=== PATIENT | female | born 1990 | race Caucasian/White ===

== ENCOUNTER 2017-05-24 09:27 | Inpatient (IN) | payer OTHER ==
[~2017-05-24] VITALS: Ht 167.6 cm; Wt 96.7 kg
--- NOTE | 2017-05-24 09:36 | ED GENERAL ADULT ---
See Addendum History of Present Illness General Chief Complaint: Psychiatric Related Complaint Stated Complaint: BIBA BIPOLAR D/O, NOT MED COMPLIANT Source: patient, EMS, police Exam Limitations: poor historian Vital Signs & Intake/Output Vital Signs & Intake/Output Vital Signs Date Time Temp Pulse Resp B/P B/P Pulse O2 O2 Flow FiO2 Mean Ox Delivery Rate 05/26 1354 97.8 106 18 137/88 96 05/26 1026 98.0 97 18 130/71 98 Room Air 05/26 0655 97.1 101 18 142/87 99 Room Air 05/26 0300 98.0 84 18 120/76 98 Room Air 05/25 2058 97.9 86 18 105/53 97 Room Air Allergies Coded Allergies: No Known Allergies (05/24/17) Reconcile Medications Bupropion HCl (Wellbutrin Sr) (Unknown Strength) TABLET.ER (Unknown Dose) DEPRESSION (Reported) Lamotrigine (Lamictal) (Unknown Strength) TABLET (Unknown Dose) PT (Reported) Triage Nurses Notes Reviewed? yes Onset: Abrupt Duration: day(s): Timing: recent history HPI: 05/24/17 26-year-old female presents to the emergency department after a violent outburst. According to police the patient has a history of bipolar disorder. She was at her brother's house visiting and she apparently began breaking things and threw an object through a car front windshield. When asked why she did it she says she does not know. She says she's been off her medications. She denies any medical problems other than bipolar disorder. (Flavio Field DO) Past History Travel History Traveled to [place] past 21 day No Medical History Any Pertinent Medical History? see below for history Psychiatric: bipolar disease Surgical History Surgical History: none Family History Hx Contributory? No (Flavio Field DO) Review of Systems Review of Systems Constitutional: Denies: fever. EENTM: Denies: visual changes. Respiratory: Denies: short of breath. Cardiovascular: Denies: chest pain. GI: Denies: abdominal pain. Genitourinary: Reports: no symptoms. Musculoskeletal: Reports: no symptoms. Skin: Reports: no symptoms. Neurological/Psychological: Reports: anxiety. Hematologic/Endocrine: Reports: no symptoms. Immunologic/Allergic: Reports: no symptoms. (Flavio Field DO) Physical Exam Physical Exam General Appearance: well developed/nourished, alert, awake, anxious, mild distress Head: atraumatic, normal appearance Eyes: Bilateral: normal appearance, PERRL, EOMI. Ears, Nose, Throat: normal pharynx, normal ENT inspection Neck: normal inspection, supple, full range of motion Respiratory: normal breath sounds, chest non-tender, no respiratory distress Cardiovascular: regular rate/rhythm Peripheral Pulses: 4+ radial (R), 4+ radial (L) Gastrointestinal: soft, non-tender Back: normal range of motion Extremities: normal inspection Neurologic/Psych: no motor/sensory deficits, awake, alert, oriented x 3 Skin: intact, normal color, warm/dry Core Measures ACS in differential dx? No CVA/TIA Diagnosis: No Sepsis Present: No Sepsis Focused Exam Completed? No (Flavio Field DO) Progress Differential Diagnoses I considered the following diagnoses in my evaluation of the patient: [Bipolar disorder, alcohol intoxication, substance abuse] Plan of Care: Orders Procedure Date/time Status Continuous Observation Monitor 05/26 1900 Active Continuous Observation Monitor 05/26 1500 Active Continuous Observation Monitor 05/26 1100 Active Continuous Observation Monitor 05/26 0700 Active Current Medications Sig/Diya Start time Last Medication Dose Stop Time Status Admin Benztropine Mesylate 1 MG TID 05/26 1201 UNVr 05/26 (Cogentin 1 MG 1330 Tablet) Haloperidol 5 MG TID 05/26 1201 UNVr 05/26 (Haldol) 1330 Lamotrigine 50 MG DAILY 05/25 1056 AC 05/25 (LaMICtal) 1110 Nicotine 21 MG DAILY 05/24 1555 UNVr 05/26 (Nicoderm) 1036 11:21 PM 05/24 PM PATIENT SIGNED OUT TO ME BY DR QUIROZ, BED SEARCH. 11:42 PM 05/25 PM PATIENT SIGNED OUT TO ME BY DR QUIROZ, PENDING CRISIS BED SEARCH. (Tita Esquivel MD) Initial ED EKG: none (Flavio Field DO) Hand-Off Endorsed To: Tita Esquivel MD Endorsed Time: 2300 Pending: consult (BED SEARCH) (Sofia DURANT,Dani Hartman) Differential Diagnoses I considered the following diagnoses in my evaluation of the patient: Hand-Off Endorsed To: Brian White MD Endorsed Time: 07 Pending: consult (CRISIS BED SEARCH) (Tita Esquivel MD) Hand-Off Endorsed To: Dani Quiroz MD Endorsed Time: 190 Pending: other (bed search) (Brian White MD) Departure Departure Disposition: STILL A PATIENT Condition: Stable Clinical Impression Primary Impression: Agitation Secondary Impressions: Bipolar disorder Departure Forms: Customer Survey General Discharge Information Comments 05/24/17 4 pm The patient was seen and evaluated by crisis. She is for a bed search. Atarax given for anxiety. Nicotine patch was given. The patient will be signed out to Dr. Quiroz at 7 PM. (Flavio Field DO) Critical Care Note Critical Care Note Critical Care Time: 30-74 min (Flavio Field DO) 05/24/17 4 pm The patient was seen and evaluated by crisis. She is for a bed search. Atarax given for anxiety. Nicotine patch was given. The patient will be signed out to Dr. Quiroz at 7 PM. (Flavio Field DO) Critical Care Note Critical Care Note Critical Care Time: 30-74 min (Flavio Field DO) 4 pm The patient was seen and evaluated by crisis. She is for a bed search. Atarax given for anxiety. Nicotine patch was given. The patient will be signed out to Dr. Quiroz at 7 PM. (Flavio Field DO) Critical Care Note Critical Care Note Critical Care Time: 30-74 min (Flavio Field DO)
[2017-05-24] MEDS ORDERED: WELLBUTRIN SR100 M2 (10:13)
[2017-05-24] MEDS ORDERED: LAMICTAL25 M1 (10:13)
[2017-05-24 11:18] LABS: ABSOLUTE BASOPHIL COUNT 0 /CUMM (0.0-0.2); ABSOLUTE EOSINOPHIL COUNT 0.1 /CUMM (0.0-0.7); ABSOLUTE GRANULOCYTE CT 8.6 /CUMM (1.4-6.5); ABSOLUTE LYMPH COUNT 1.6 /CUMM (1.2-3.4); ABSOLUTE MONOCYTE COUNT 1.1 /CUMM (0.10-0.60); BASOPHIL % 0.4 % (0.0-2.0); EOSINOPHIL % 0.9 % (0-5); GRANULOCYTE % 74.7 % (42.2-75.2); MEAN CORPUSCULAR HGB 30.4 PG (27.0-31.0); MEAN CORPUSCULAR HGB CONC 33.2 G/DL (33.0-37.0); MEAN CORPUSCULAR VOLUME 91.6 FL (81.0-99.0); MEAN PLATELET VOLUME 9.4 FL (7.4-10.4); PLATELET COUNT 226 /CUMM (130-400); RBC DISTRIBUTION WIDTH 14.2 % (11.5-14.5); RED BLOOD CELL CT 4.69 /CUMM (4.20-5.40); WHITE BLOOD CELL COUNT 11.5 /CUMM (4.8-10.8)
--- NOTE | 2017-05-24 14:31 | ED PSY CRISIS COLLATERAL NOTE ---
Collateral Note Collateral Note Family/Inform/Chantel Contacts: Collateral information obtained from patient's brother Jose Thapa [phone] and patient's sister in-law . This communications writer met with brother and sister in law in ED waiting room. They did not want to meet with patient at this time due to her recent behavioral escalation. They inquired if she was now calm. Sister-in law reports she is close to patient and has had patient stay in her home since Sunday 05/21. Sister in law reports patient has been acting erratically in the past week and she recently learned from patient's therapist that she has been non-compliant with her medication. Patient resides in [facility] and receives mental health treatment services from [facility] ([facility]) in [place], [place] phone #[phone]. Patient's current psychiatrist is Dr. Nano Feng M.D. Sister in law reports current medicatons as Lamictal and Wellbutrin. In the past, patient was prescribed Klonopin which she reportedly abused. Brother reports patient has experienced psychotic episodes intermittently for the past ~8 years. She has had several hospitalizations and has also been in rehab facilities for alcohol detox. Brother believes patient has been drinking excessively recently. Currently, patient attends outpatient groups at [facility] in [place] and also has an individual outpatient therapist and medication management. Brother reports patient's diagnosis as Bipolar disorder, Type I and Borderline personality disorder. Sister-in law reports patient has been delusional and reporting she is despite onset of menstruation. Also, patient has been making paranoid statements such as "people are coming to get me" and when asked specifically who she is worried about, she replied only with "they." Sister-in law reports patient has been posting bizarre statements on social media. Family reports patient has not been sleeping well and may not have slept in over 3 days. They are concerned patient may be experiencing auditory hallucinations. Sister-in law has been observing patient take her lamictal medication since Friday and she has taken an active role in administering. However, family suspects while patient was in [place] before friday, she may not have been taking her medication and may have been drinking as well. Patient has a relationship with a male but she does not consider him as a boyfriend, per sister in law. Patient has limited support currently. Her mother last year from a GI issue suddenly which has greatly impacted patient as mother was a source of support. Patient's sister-in law is also supportive but she states she cannot continue to have patient in her home after this recent incident where she had a physically aggressive outburst. Brother and sister deny patient was physically aggressive towards them. They assert patient was having an "episode" and was only destructive towards property.
--- NOTE | 2017-05-24 16:06 | ED PSYCH CRISIS CONSULTATION ---
See Addendum Crisis Consult Basic Assessment Date of Consult: 05/24/17 Responsible Person/Accompanied By: self Insurance Authorization: Insurance #1: Insurance name: [facility] Phone number: Policy number: [id number] Group number: Authorization number: ED Provider: Patient's ED Provider: Flavio Field DO Primary Care Physician: Patient's PCP: Patient Has No Primary Care Dr PCP's Phone Number: Current Psychiatrist: Dr. Feng Chief Complaint: Psychiatric Related Complaint Patient's Quote: "I can fly a plane arounf the world." Present Illness: Client is a 23yo female who was brought in on a PEER from her brother's home due to manic and psychotic symptoms. Crisis evaluation was limited as pt presents hyperverbal, pressured, disorganized and with derailed thoughts as well as with paranoid delusions. Pt was also labile crying and irritable and pacing around the room. she explained that the reason that she was breaking things was because she was afraid that there are men after her to hurt and her family and she says she was trying to protect them. "Every one on my Mom's side of the family has been wiped out over the past 2 years." When asked if she felt safe in the hospital she replies "yes, I can fly a plane around the world." She was able to identify that she has a psychiatric history since 2009 in numerous inpt and out pt settings as well as rehabs for alcohol and benzo abuse. She was not able to give more specifics than that. "I don't know you would have to ask my Mom, but she is like the rest of them." she was not able to identify when the last time she drank or used benzos. "Maybe last night because I had a drink that smelled like alcohol, but was told that there was no alcohol in it." Her UDS was positive for marijuana and BAL negative. When asked about her marijuana use she was also vague stating "once ion awhile." Pt denies auditory or visual hallucinations (although PEER states she was hearing voices), but admits to intrusive thoughts of dying in the near future by either overdosing on pills or hanging from the ceiling, but when asked about suicidal ideation she denies it. She admits to 1 prior suicide attempt by overdosing on pills while intoxicated on alcohol, but was not able to identify when. She also admits to a history of cutting "as a cry for help." C-SSRS rating scale was done and risk factors include, history of suicidal and self injurious behavior, activating events such as recent losses, psychiatric treatment history, non-compliance with treatment, feelings of hopelesssness, feeling trapped, depressive sx, mixed episode, highly impulsive behavior, substance use, agitation, anxiety, perceived burden on family, physical pain, aggressive behavior, method of suicide available, Protective factors include Identifies reason for living including family and friends, supportive network ( family), spirituality. The following is collateral obtained by Senior Process Analyst Antonio Flores: "Collateral information obtained from patient's brother Jose Thapa [phone] and patient's sister in-law . This keno writer met with brother and sister in law in ED waiting room. They did not want to meet with patient at this time due to her recent behavioral escalation. They inquired if she was now calm. Sister-in law reports she is close to patient and has had patient stay in her home since Sunday 05/21. Sister in law reports patient has been acting erratically in the past week and she recently learned from patient's therapist that she has been non-compliant with her medication. Patient resides in [facility] and receives mental health treatment services from [facility] ([facility]) in [place], [place] phone #[phone]. Patient's current psychiatrist is Dr. Nano Feng M.D. Sister in law reports current medications as Lamictal and Wellbutrin. In the past, patient was prescribed Klonopin which she reportedly abused. Brother reports patient has experienced psychotic episodes intermittently for the past ~8 years. She has had several hospitalizations and has also been in rehab facilities for alcohol detox. Brother believes patient has been drinking excessively recently. Currently, patient attends outpatient groups at [facility] in [place] and also has an individual outpatient therapist and medication management. Brother reports patient's diagnosis as Bipolar disorder, Type I and Borderline personality disorder. Sister-in law reports patient has been delusional and reporting she is despite onset of menstruation. Also, patient has been making paranoid statements such as "people are coming to get me" and when asked specifically who she is worried about, she replied only with "they." Sister-in law reports patient has been posting bizarre statements on social media. Family reports patient has not been sleeping well and may not have slept in over 3 days. They are concerned patient may be experiencing auditory hallucinations. Sister-in law has been observing patient take her lamictal medication since Friday and she has taken an active role in administering. However, family suspects while patient was in [place] before friday, she may not have been taking her medication and may have been drinking as well. Patient has a relationship with a male but she does not consider him as a boyfriend, per sister in law. Patient has limited support currently. Her mother last year from a GI issue suddenly which has greatly impacted patient as mother was a source of support. Patient's sister-in law is also supportive but she states she cannot continue to have patient in her home after this recent incident where she had a physically aggressive outburst. Brother and sister deny patient was physically aggressive towards them. They assert patient was having an "episode" and was only destructive towards property. " Case reviewed with Dr. Vigil of Psychiatry and pt requires inpatient psychiatric hospitalization. She recommends pt be given an anti-psychotic medication, but pt is refusing to take any meds at this time. There are no beds available on [facility] so a bed search is being done. Patient's Address: [address] [place] [address] Other Phone Number: Who Do You Live With? Family Family/Informants Interviewed: Brother and [id number] Allergies - Coded Allergies: No Known Allergies (05/24/17) Current Medications - Miscellaneous Medications Bupropion HCl (Wellbutrin Sr) (Unknown Strength) TABLET.ER (Unknown Dose) DEPRESSION (Reported) Entered as Reported by Karmen Becerril on 05/24/17 1013 Lamotrigine (Lamictal) (Unknown Strength) TABLET (Unknown Dose) PT (Reported) Entered as Reported by Karmen Becerril on 05/24/17 1013 Laboratory Results: Laboratory Tests 05/24/17 1235: Urine Opiates Screen < 100, Methadone Screen 63, Barbiturate Screen < 60, Ur Phencyclidine Scrn 12.50, Amphetamines Screen < 100, U Benzodiazepines Scrn 116, Urine Cocaine Screen < 50, Urine Cannabis Screen > 80.00 H, Urine Color YEL, Urine Clarity CLEAR, Urine pH 7.0, Ur Specific Hutchinson 1.015, Urine Protein NEG, Urine Ketones NEG, Urine Nitrite NEG, Urine Bilirubin NEG, Urine Urobilinogen 0.2, Ur Leukocyte Esterase NEG, Ur Microscopic EXAM NOT REQUIRED, Urine Hemoglobin NEG, Urine Glucose NEG 05/24/17 1055: Anion Gap 9, Estimated GFR > 60, BUN/Creatinine Ratio 15.0, Glucose 101 H, Calcium 9.8, Total Bilirubin 0.6, AST 24, ALT 38, Alkaline Phosphatase 95, Total Protein 6.8, Albumin 4.0, Globulin 2.8, Albumin/Globulin Ratio 1.4, Total Beta HCG NEGATIVE, CBC w Diff NO MAN DIFF REQ, RBC 4.69, MCV 91.6, MCH 30.4, MCHC 33.2, RDW 14.2, MPV 9.4, Gran % 74.7, Lymphocytes % 14.1 L, Monocytes % 9.9 H, Eosinophils % 0.9, Basophils % 0.4, Absolute Granulocytes 8.6 H, Absolute Lymphocytes 1.6, Absolute Monocytes 1.1 H, Absolute Eosinophils 0.1, Absolute Basophils 0, Serum Alcohol < 10.0 (Kenneth CORDOVA,Rylee) Addendum Addendum 05/25/17 Crisis Update: Met with the pt who presents alert, oriented and cooperative. The pt stated this is the best Lizbeth felt in years. The pt denies SI, HI, AH and VH. Addressed with pt the plan to continue the bed search. The pt stated she is aware of the plan for hospitalization and in agreement. The pt presents with tangential thought process and pressured speech. (Shaheen LARIOS,Bulmaro Stoddard) Past History Past Medical History Psychiatric: bipolar disease Past Surgical History Surgical History: 1 Psychosocial History Strengths/Capabilities: supportive family Physical Limitations (Interventions): none reported Psychiatric Treatment History Psych Treatment Psychiatric Treatment Yes Inpatient Treatment Yes Outpatient Treatment Yes Location of Treatment multiple Reason for Treatment Bipolar with psychotic features Dates of Treatment multiple Response to Treatment variable Diagnosis by History: Bipolar with psychotic features Substance Use/Abuse History Drug Use/Abuse Substances Used/Abused Yes Substance Used/Abused Marijuana First Use unclear Last Used unclear How much used/taken unclear How often unclear For how long unclear Route of use unclear Substance Abuse Treatment Substance Abuse Treatment Past Substance Abuse TX Yes Inpatient Treatment Yes Outpatient Treatment Yes Location of Treatment multiple Reason for Treatment Alcohol and benzo Dates of Treatment multiple Response to Treatment variable (Rylee Cooper LCSW) Current Mental Status Mental Status Orientation: Confused Affect: Anxious, Angry, Broad, Depressed, Hopeless, Labile, Manic, Sad, Variable Speech: Evasive, Hyper-verbal, Loud, Pressured Neuro-vegetative: Concentration Poor, Energy Increased, Helpless, Sleep Disturbance Appearance Appearance- Dress/Hygiene: unkempt, pacing aroung the room, tearful Behaviors Thought Process: Disorganized, Flight of Ideas, Irrational Thought Content: Delusions, Paranoid Memory: Impaired Insight: Poor SI/HI Risk Assessment Past Suicidal Ideation/Attempts Yes Current Suicidal Ideation/Att No Past Homicidal Ideation/Att: No Current Homicidal Ideation/Attempts No Degree of Intent: None Danger To: Property Gravely Disabled: Inability, Lack of Insight, Poor Impulse Control, Poor Judgment Risk Factors: access to lethal means, high anxiety/distress, history of Violence , history of suicide atmpts, SA/MH hospitalized, substance abuse, poor impulse control, limited support Lethality Ratin PTSD Checklist PTSD Done? pt unable to participate ED Management Sitter: Yes Restraints: No (Rylee Cooper LCSW) DSM5/PS Stressors/Medical Prob Diagnosis' (DSM 5, Stressors, Medical): F31.2 Bipolar with psychotic features F12.10 Cannabis use d/o Current GAF: 18 (Rylee Cooper LCSW) Departure Disposition Psych Medical Clearance Date: 05/24/17 Medically Cleared at: 1530 Time Started: 1530 Time Ended: 1630 Psychiatrist Consulted: Yaritza Date Disposition Established: 05/24/17 Time Disposition Established: 1629 Plan for Disposition - Modality: Inpatient Psychiatry Facility: Bed search Rationale for Disposition: safety and stabilization Referrals Patient Has No Primary Care Dr (PCP/Family) (Rylee Cooper LCSW)
--- NOTE | 2017-05-25 19:38 | ED PSYCHIATRIST/APRN CONSULT ---
See Addendum Psychiatrist/BONE GLUE MAKER ED Consult Assessment and Plan: 23 year old woman with a history of psychiatric illness, multiple admissions on [place], brought in on a PEER manic, pressured and delusional. She has been with her family in [place] who brought her in due to her derailment. She spoke about people spreading rumors against her, about people in her life trying to team up against her, and how she needed to get out her situation. She was long winded, illogical with occasional flight of ideas. She was not as grossly labile as she had presented on admission however very symptomatic still. She reported being in and out of hospitals over the last few years for weeks at a time, one past suicide attempt. It was difficult to get a good medication hx from her, she stated that she didnt need any meds. MSE: fair grooming young woman, anxious and emotional, though able to self regulate somewhat. She has rapid speech and is pressured. She states her mood is fine and her affect is expansive but overall stable. Her thinking is derailed at times, and laden with persecutory delusions. Her insight to current sx is absent and judgment is poor. She denies thoughts to wanting to harm self or anyone else. A: 23 year old woman w/ decompensated psychotic/manic episode. She is refusing to take antipsychotics and is on Wellbutrin which could be making her worse in addition to lamictal. In absence of collateral from her providers, will hold her Wellbutrin for now and re-eval by clinician in the morning. She needs a higher dose of lamictal which is a slow titration, or a different mood stabilizer in addition to an antipsychotic, all of which she will likely refuse. she has chronci risks of harm to self/others due to her above risk factors, most acutely address her tom/psychosis w/ admission and consideration of antipsychotics/ mood stabilizers. Rec: educate about med changes; d/c wellbutrin; IP admission.
--- NOTE | 2017-05-26 12:53 | ED PSY CRISIS COLLATERAL NOTE ---
Collateral Note Collateral Note Family/Inform/Chantel Contacts: Crisis recieved return call from Ms. Ricci whom is patient's therapist at [facility] ([facility]). Ms. Ricci reports that she has only seen the patient 2x (intake and then last appt was 05/22/17- family brought her but they were so late that they could only meet for 10 minutes. 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 Pt last saw psychiatrist on 05/19/17 and pt was scheduled to see psychiatrist today. Therapist will let psychiatrist know that she is at [facility] and will not be attending the appt today. Agency is located on [place]- Local Hospitals are [facility] and [facility], in case there is a possibilty to transfer pt to [place]. [facility] would like an update for final dispo is made and where pt is transferred.
--- NOTE | 2017-05-26 21:26 | ED PSYCHIATRIST/APRN CONSULT ---
Psychiatrist/ARCHITECTURAL DESIGN LECTURER ED Consult Assessment and Plan: The patient was seen for re-evaluation. She is a 33 yo , single female, domiciled, employed, who was brought into the emergency room by her brother and [id number] for exacerbation of a diagnosed bipolar disorder after a week of not taking medication. We reviewed the previous Crisis notes, as well as the psychiatrists electronic communications technician notes and interviewed the patient. She appeared calmer than described in the previous documents. She did receive multiple dosages of Haloperidol. The patient says "I know what I'm doing and what I did. It is obvious that when I don't take medications I go a little bit wild. It is clear now that I have to take medication so I dont to something stupid . According to the previous notes, the patient has been labile, agitated, had racing thoughts and pressure apparently in a hypo manic/manic state. She continues to be disorganized and according to the family gravely disabled. The patient is motivated for treatment and is not opposed to an inpatient stabilization. We will continue observation, administering medication and look for an inpatient psychiatric bed . It is of note that the patient had suicide attempts in the past and was threatening at some point suicide.
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
--- NOTE | 2017-05-27 16:03 | ED PSY CRISIS COLLATERAL NOTE ---
Collateral Note Collateral Note Family/Inform/Chantel Contacts: Crisis spoke with Lashaun Radhames [phone] from [facility] ( [facility]). Informed Lashaun that pt would be admitted to [facility]PS today. She said she and the psychiatrist believe that is for the best. Informed her that on-going coordination would be completed by inpatient social workers if LOIS is signed patient.
[2017-05-27 17:40] VITALS: BP 157/89
[2017-05-27 19:59] VITALS: BP 145/87
[2017-05-28 08:00] VITALS: BP 142/72
[2017-05-28 12:28] VITALS: BP 140/86
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
[2017-05-28 16:05] VITALS: BP 143/86
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
[2017-05-28 19:44] VITALS: BP 141/77
[2017-05-29 07:32] VITALS: BP 134/72
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
[2017-05-29 12:07] VITALS: BP 136/76
[2017-05-29 16:02] VITALS: BP 135/68
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
[2017-05-29 19:54] VITALS: BP 124/58
[2017-05-30 07:33] VITALS: BP 122/73
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
--- NOTE | 2017-05-30 09:44 | SOCIAL WORKER PROG NOTE PSYCH ---
Social Work Progress Note Progress Note [facility]#[phone] - spoke with Katharine in Intake she stated she needs clinical faxed in order to determine level of care and if they will accept Isabel back. She was in MH treatment there, and they do have dual. Expressed urgency on receiving a call back with their decision [facility], as patient may discharge today or soon. They were not aware she had a substance issue - positive for Cannibis. Asked Katharine to contact Neeta Sharp lCSW today. Faxed clinical to [facility]: Katharine (woudn't give me her last name). Fx#[phone] - Fax clinical 24pgs. went through 05/30 at 9:41am.
[2017-05-30 12:16] VITALS: BP 119/65
--- NOTE | 2017-05-30 14:43 | CP SOUTH PROGRESS NOTE PSYCH ---
Psych (Inpt) Progress Note Progress Note Include the following elements, when applicable: Involvement in the active treatment of the patient with behavioral observations of the patient and the patient's response to the treatment. Review of the ongoing treatment process in the context of the treatment plan. Indication of how multi-disciplinary staff members are carrying out the treatment plan. Plans for future interventions and recommendations for revision of the treatment plan. Liaison with other physicians/providers. Progress Note: Case and treatment plan discussed in team meeting. Staff reports that the patient is appearing calmer. machine made shoe unit worker informed me that the patient was labile and impulsive in her interactions with the renal social worker this morning. Patient seen at 10:46 AM. She was in group prior to meeting with me in office. Reports feeling pretty good today. Reports her only problem is getting her discharge plan. States she can stay with her maternal Aunt Katherine in [place]. Affect is calm and euthymic. Reports she is actually in a good mood, calm, relaxed and states her thoughts are collected. She felt sedated this morning after breakfast and reports that she napped from that time until 10 AM. Appears awake and alert. She guesses sad mood is 2/10. Reports she always has anxiety and rates it at 5/10. Denies feeling hopeless, helpless or worthless. Does feel guilty sometimes. Denies active and passive suicidal ideation. Denies homicidal ideation. Denies homicidal thoughts towards her ex-boyfriend. Denies auditory and visual hallucinations. Denies paranoid ideation and magical wahl. Reports sleep is pretty good. Reports she is starting to grow her appetite again. Reports energy as feeling like a 5/10, healthy, in the middle. States she is not hyper and is not sad. Feels content. Tolerating current medications well except for having had some mild sedation earlier this morning. IMPRESSION: Slow progress. Continue present treatment plan. It does not appear that the patient can stay locally with her brother and his family, as there reportedly is a protective order in place. We need to verify that the patient can stay with her Aunt Katherine. Patient feels it necessary for her to be discharged Friday so she can go to work at 12 noon in [place] and attend a therapy appointment on Friday. Continue current medications as ordered but consider increasing Haldol dose if clinically indicated.
[2017-05-30 15:41] VITALS: BP 129/65
[2017-05-30 19:57] VITALS: BP 143/78
[2017-05-31 08:10] VITALS: BP 138/63
[2017-05-31 12:11] VITALS: BP 123/70
[2017-05-31 16:09] VITALS: BP 129/73
--- NOTE | 2017-05-31 16:29 | CP SOUTH PROGRESS NOTE PSYCH ---
See Addendum Psych (Inpt) Progress Note Progress Note The patient was seen during continuing care. We discussed the patient with the unit staff, we reviewed the inpatient medical records and interviewed her 03-10. She appears much different than when we first saw in the emergency . when she came in. The patient is a 26 years old, single female, diagnosed with bipolar disorder and in the habit of interrupting medication on and off after which she did decompensate. She is currently cheerful and upbeat. Interacts appropriately with peers and unit staff. Continues to appear hypomanic hyperverbal, there is some affective lability as noted by the unit staff. Volume: She reports that her thinking is clearer, continues to complain of anxiety, is compliant with treatment. The patient denies suicidal/homicidal ideation, auditory/visual hallucinations or side effects from medication. the patient has good attention and concentration, intact memory, average fund of knowledge and is considered to be of average intelligence The patient has good insight and judgment, and is motivated for treatment. She wants to continue the medication as prescribed and return for follow-up treatment to her previous prescribers in [place].
[2017-05-31 19:45] VITALS: BP 146/70
[2017-06-01 08:19] VITALS: BP 138/67
[2017-06-01 12:13] VITALS: BP 131/72
[2017-06-01 15:57] VITALS: BP 131/75
--- NOTE | 2017-06-01 18:38 | CP SOUTH PROGRESS NOTE PSYCH ---
Psych (Inpt) Progress Note Progress Note Seen for reevaluation. Seen 1:1, discussed with the unit staff. Reports improved, more stable mood. Continues to be very emotional when talking about her mother. Still hypomanic, changing outfits multiple times a day, pressured speech, tolerates medication well. Denies S/HI, A/VH, SE from medication. Worries about work, the protective order her brother has against her. Says she wants to discharge tomorrow, stating she can't miss more work and that she has appointments with her therapist Lashaun Santiago LCSW, at [place], [place] on Friday, 06/03 and says she could see the psychiatrist, [facility]. Has good insight and judgement and is motivated for treatment. A/P Bipolar Disorder-current episode hypomanic, mild-improving with the aid of medication. Agrees to increase haldol to 7.5 mg at bedtime, will continue the other medication as prescribed, we will continue observation, symptom monitoring, medication management and daily meeting with the unit prescriber. Will return to previous providers after discharge. The patient's pharmacy is [facility] in [place], [place]([facility]).
[2017-06-01 19:53] VITALS: BP 134/61
[2017-06-02 07:24] VITALS: BP 11/86
--- NOTE | 2017-06-02 10:41 | SOCIAL WORKER PROG NOTE PSYCH ---
Social Work Progress Note Progress Note Spoke with Isabel's Aunt Ashley Thapa [phone]. Her Aunt is not agreeable to taking her into her home at this time. She stated she works full- time and she couldn't trust Isabel in her home by herself when she isn't around. She expressed her thoughts about Isabel not being at baseline yet and concerned when I told her she was discharging. I explained that her acute symptoms requiring inpatient hospitalization have stablized and she needs to follow up outpatient from this point. Met with Isabel. She reported that she was feeling tired. Stated she couldn't get back to sleep after waking up around 4am. She said she is getting about 5 hours of sleep. She is looking to discharge today. I told her I spoke with her Aunt and staying with her is not an option. She was aware and had spoken with her Aunt over the weekend. She stated she is planning to return back to the place in [facility]. She denied having any concerns at this time related to returning there and stated she just needs to focus on herself and she thinks that this week away from there has helped things. 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 She became tearful stating that the member there are welcoming to her and treat her better than her family and other friends she has had. I told her I was trying to secure a f/u appt. with her psychiatrist. She said she believed she has an appt. next week, but didn't remember the date. During our meeting we also reached out to the [place] [employer] Worker's Office, since no one had returned my call from the star route mail driver's Office last week. The industrial order clerk reported that there was a rearrest warrant since no one had contacted them from the hospital last week. I told her that I had called and no one returned my call and told me to send a letter. She said to send one over today with dates of hospitalization and date of proposed d/c. She said the the rearrest would be vacated after they get the letter. She informed Isabel that if she leaves today , she would need to show up at court tomorrow morning 9am. Isabel is aware and stated she could make that happen. Isabel called her cousin Roxana and asked if she could pick her up today at the hospital to get home. She offered to pay her between 100-200 dollars to get her. Roxana apparently told Isabel she would call the nurses station and talk to her later about a plan. Faxed a letter to [place] [facility] with the dates of treatment. Had her call her cousin again in my presence at 3pm. Got her voicemail and left a message. Called a couple different family members. Got no response to being able to give her a ride and some people were just not able to come today. Isabel was willing to take a bus to [place] and then get the train to [facility]. She spoke with her StepFather who was going to meet her in [facility] to give her money for a train from there. She was given 20.00 from [facility] to get to [place] and instructions on the bus schedule and train schedule. She seemed competent and willing to get home utilizing public transportation.
[2017-06-02 12:23] VITALS: BP 142/71
[2017-06-02] MEDS ORDERED: Nicoderm TOP (13:13)
[2017-06-02] MEDS ORDERED: BENZTROPINE MESY1 M1 PO (13:13)
[2017-06-02] MEDS ORDERED: HALOPERIDOL5 MG PO (13:13)
[2017-06-02] MEDS ORDERED: DOCUSATE SODIU100 M3 PO (13:13)
[2017-06-02] MEDS ORDERED: LAMICTAL100 M2 PO (13:13)
[2017-06-02] MEDS ORDERED: GABAPENTIN300 M2 PO (13:13)
[2017-06-02] MEDS ORDERED: HYDROXYZINE HCL50 M1 PO (13:13)
--- NOTE | 2017-06-02 13:20 | Patient Discharge Instructions ---
Psych Discharge Inst General Discharge Information Reason for Admission: Brought in on PEER due to manic and psychotic symptoms. Patient presented to crisis as hyperverbal, with pressured speech, disorganized thought processes and paranoid delusions. Psy Discharge Primary Diag+ Bipolar d/o, manic with psychotic features Psy Discharge Secondary Diag+ Hx PTSD Hx borderline pers d/o Cannabis use d/o Summary Tests/Major Procedures Lab ALT 38 U/L 05/24/17 1055 AST 24 U/L 05/24/17 1055 BUN 12 mg/dL 05/24/17 1055 Calcium 9.8 mg/dL 05/24/17 1055 Carbon Dioxide 28 mmol/L 05/24/17 1055 Chloride 105 mmol/L 05/24/17 1055 Cholesterol 159 MG/DL 05/29/17 0614 Cholesterol/HDL Ratio 5 % H 05/29/17 0614 Creatinine 0.8 mg/dL 05/24/17 1055 Estimated GFR > 60 ml/min 05/24/17 1055 Free T4 1.41 ng/dL 05/24/17 1055 Glucose 101 mg/dL H 05/24/17 1055 HDL Cholesterol 34 mg/dL L 05/29/17 0614 Hemoglobin A1c 5.4 % 05/29/17 0614 LDL Cholesterol, Calc 103 mg/dL 05/29/17 0614 Potassium 3.8 mmol/L 05/24/17 1055 Sodium 141 mmol/L 05/24/17 1055 TSH 0.846 uIU/mL 05/24/17 1055 Total Beta HCG NEGATIVE 05/24/17 1055 Absolute Granulocytes 8.6 /CUMM H 05/24/17 1055 Absolute Monocytes 1.1 /CUMM H 05/24/17 1055 Hct 43.0 % 05/24/17 1055 Hgb 14.3 G/DL 05/24/17 1055 Lymphocytes % 14.1 % L 05/24/17 1055 Monocytes % 9.9 % H 05/24/17 1055 Plt Count 226 /CUMM 05/24/17 1055 WBC 11.5 /CUMM H 05/24/17 1055 Serum Alcohol < 10.0 MG/DL 05/24/17 1055 Urine Cannabis Screen > 80.00 NG/ML H 05/24/17 1235 EKG 05/28/17 was normal. Studies Pending at DC: None. Patient Instructions Contact Information Your Psychiatrist on [facility] was Layla DURANT,[place] * If you are experiencing an emergency related to this hospitalization, please call [phone] to contact the treating psychiatrist or the psychiatrist-on- call. * To Request a copy of your medical records, please contact the Medical Records Department at [phone]. * To request results of studies pending at the time of discharge, please call [phone]. * Continue your Medications until directed to stop by your Healthcare provider. General Medication Information Please continue to take your new medications and your continued home medications , unless otherwise indicated on your discharge medication list, or unless directed by your MD or PHONE ENGINEER to stop them. Special Instructions Diet Regular Activity Normal Other Inst/Recommendations See PCP about abnormal labs listed above. Stay clean from drugs&alcohol. - Tobacco Use Treatment Offered Post DC Medications Offered: Script Given-See Med List Post DC Tobacco Treatment Plan: [facility] Program Appt Date: 06/11/17 Program Appt Time: 1600 - EtOH/Drug Use D/O Treatment Offered Post DC Medications Offered: Med Not Indicated for D/O Post DC EtOH/SubAbuse TX Plan: Other SubAbuse/Dual Pgm ([facility] in ) Program Appt Date: 06/03/17 Program Appt Time: 1700 Metabolic Screening () Not Applicable, patient not on a neuroleptic. OR () Patient on a neuroleptic(s) . Enter below results for Hemoglobin A1C, and lipid panel if obtained during the last 365 days. BMI: 34.400 Blood Pressure: 142/71 Laboratory Results From [facility] (If applicable): [x] Please see lab section above. Advance Directives Does the Patient have Medical Advance Directives No/Refused further info Does Pt have Psychiatric Advance Directives? No/Refused further info Does Patient have a Designated Surrogate Decision Maker: No Information About Psychiatric Advance Directives Provided? Refused Discharge Plan Post Hospital Treatment Plan: Returning to home. [facility] 06/03/[address] at [address] tomorrow, 06/03/17 at 10 am.
--- NOTE | 2017-06-02 15:30 | CP SOUTH PROGRESS NOTE PSYCH ---
Psych (Inpt) Progress Note Progress Note Include the following elements, when applicable: Involvement in the active treatment of the patient with behavioral observations of the patient and the patient's response to the treatment. Review of the ongoing treatment process in the context of the treatment plan. Indication of how multi-disciplinary staff members are carrying out the treatment plan. Plans for future interventions and recommendations for revision of the treatment plan. Liaison with other physicians/providers. Progress Note: Lily Nicole MD's notes reviewed. Case and treatment plan discussed in team meeting. Staff reports that the patient is denying suicidal ideation. A little bit positive. Patient apparently asked staff multiple times about her belongings. Described as labile and tearful. Patient seen at 12:13 PM. Reports she feels very well today. 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 The pain is intermittent, currently 0/10 but it can be 6-7/10. Patient plans to see her PCP, Dr. Paul Stovall in [place], [place]. Reports mentally she feels really well. Affect is calm and euthymic. Reports mood is happy but not manic. States she has chronic racing thoughts that are manageable. They occur mostly at bedtime. Rates sad mood about 2/10 and anxiety about 3/10. Denies feeling hopeless, helpless or worthless. Feels guilty sometimes. Denies active and passive suicidal ideation. Denies homicidal ideation. Denies auditory and visual hallucinations. Denies paranoid ideation and magical wahl. Reports sleep is pretty good. Reports appetite is coming back up every day. Energy is described as tired but she feels like she could run a marathon. Tolerating medications well, without complaint. Feels ready and safe for discharge. Patient anticipates that her cousin will pick her up. Patient plans to stay [place] [facility] and then return to [place] to report to court at 10 AM tomorrow. IMPRESSION: Patient has achieved maximum hospital benefit. Okay for discharge today to follow up at her mental health clinic in [place], [place].
--- NOTE | 2017-06-02 15:39 | DISCHARGE SUMMARY REPORT-PSYCH ---
Visit Information Visit Dates/Diagnosis' Admission Date: 05/27/17 Discharge Date: 06/02/17 Reason for Admission: Brought in on [facility] due to manic and psychotic symptoms. Patient presented to crisis as hyperverbal, with pressured speech, disorganized thought processes and paranoid delusions. Psy Discharge Primary Diag: Bipolar d/o, manic with psychotic features Psy Discharge Secondary Diag: Hx PTSD Hx borderline pers d/o Cannabis use d/o Hospital Course Significant Lab Findings: Lab ALT 38 U/L 05/24/17 1055 AST 24 U/L 05/24/17 1055 BUN 12 mg/dL 05/24/17 1055 Calcium 9.8 mg/dL 05/24/17 1055 Carbon Dioxide 28 mmol/L 05/24/17 1055 Chloride 105 mmol/L 05/24/17 1055 Cholesterol 159 MG/DL 05/29/17 0614 Cholesterol/HDL Ratio 5 % H 05/29/17 0614 Creatinine 0.8 mg/dL 05/24/17 1055 Estimated GFR > 60 ml/min 05/24/17 1055 Free T4 1.41 ng/dL 05/24/17 1055 Glucose 101 mg/dL H 05/24/17 1055 HDL Cholesterol 34 mg/dL L 05/29/17 0614 Hemoglobin A1c 5.4 % 05/29/17 0614 LDL Cholesterol, Calc 103 mg/dL 05/29/17 0614 Potassium 3.8 mmol/L 05/24/17 1055 Sodium 141 mmol/L 05/24/17 1055 TSH 0.846 uIU/mL 05/24/17 1055 Total Beta HCG NEGATIVE 05/24/17 1055 Absolute Granulocytes 8.6 /CUMM H 05/24/17 1055 Absolute Monocytes 1.1 /CUMM H 05/24/17 1055 Hct 43.0 % 05/24/17 1055 Hgb 14.3 G/DL 05/24/17 1055 Lymphocytes % 14.1 % L 05/24/17 1055 Monocytes % 9.9 % H 05/24/17 1055 Plt Count 226 /CUMM 05/24/17 1055 WBC 11.5 /CUMM H 05/24/17 1055 Serum Alcohol < 10.0 MG/DL 05/24/17 1055 Urine Cannabis Screen > 80.00 NG/ML H 05/24/17 1235 EKG 3/21/18 was normal. Course Complications: None. Consultations: The patient was seen for admission history and physical examination by Dr. Riky Bartlett. Please refer to his note for additional information. Allergies: Coded Allergies: No Known Allergies (05/24/17) Hospital Course/TX Response: The patient was monitored on the unit for safety, psychosis and mood disorder. She participated in multimodal treatments on the unit. Psychosis/tom was treated with Haldol with dose tapered up to 5 mg in the morning and 7.5 mg at bedtime. Cogentin 1 mg twice daily was ordered to prevent side-effects from Haldol. Lamictal was was initially held because of tom and later restarted at 100 mg at bedtime. The patient has not demonstrated agitated behavior here. She has not been violent to here. The patient apparently cannot return to her brother's home. She plans to return to her home in [place] and resume outpatient treatment at a clinic in [place], [place]. Progress note from date of discharge, 06/02/17: Lily Nicole MD's notes reviewed. Case and treatment plan discussed in team meeting. Staff reports that the patient is denying suicidal ideation. A little bit positive. Patient apparently asked staff multiple times about her belongings. Described as labile and tearful. Patient seen at 12:13 PM. Reports she feels very well today. Complains of some stomach and [employer] discomfort and states she just ended her period 2 days ago. The pain is intermittent, currently 0/10 but it can be 6-7/10. Patient plans to see her PCP, Dr. Paul Stovall in [place], [place]. Reports mentally she feels really well. Affect is calm and euthymic. Reports mood is happy but not manic. States she has chronic racing thoughts that are manageable. They occur mostly at bedtime. Rates sad mood about 2/10 and anxiety about 3/10. Denies feeling hopeless, helpless or worthless. Feels guilty sometimes. Denies active and passive suicidal ideation. Denies homicidal ideation. Denies auditory and visual hallucinations. Denies paranoid ideation and magical wahl. Reports sleep is pretty good. Reports appetite is coming back up every day. Energy is described as tired but she feels like she could run a marathon. Tolerating medications well, without complaint. Feels ready and safe for discharge. Patient anticipates that her cousin will pick her up. Patient plans to stay at her house of [facility] and then return to [place] to report to court at 10 AM tomorrow. IMPRESSION: Patient has achieved maximum hospital benefit. Okay for discharge today to follow up at her mental health clinic in [place], [place]. Discharge HBIPS - Tobacco Use Treatment Offered Post DC Medications Offered: Script Given-See Med List Post DC Tobacco Treatment Plan: [facility] Program Appt Date: 06/11/17 Program Appt Time: 1600 - EtOH/Drug Use D/O Treatment Offered Post DC Medications Offered: Med Not Indicated for D/O Post DC EtOH/SubAbuse TX Plan: Other SubAbuse/Dual Pgm ([facility]) Program Appt Date: 06/03/17 Program Appt Time: 1715 Metabolic Screening - Screen if on a Neuroleptic Medication - Metabolic screening should include: - Blood Pressure, BMI, Glucose or Hgb A1c, & a - Lipid profile from within the past 365 days. Metabolic Screening () Not Applicable, patient not on a neuroleptic. OR () Patient on a neuroleptic(s) . Enter below results for Hemoglobin A1C, and lipid panel if obtained during the last 365 days. BMI: 34.400 Blood Pressure: 142/71 Laboratory Results From [facility] E[facility] (If applicable): [x] Lab Cholesterol 159 MG/DL 05/29/17 0614 Cholesterol/HDL Ratio 5 % H 05/29/17 0614 HDL Cholesterol 34 mg/dL L 05/29/17 0614 Hemoglobin A1c 5.4 % 05/29/17 0614 LDL Cholesterol, Calc 103 mg/dL 05/29/17 0614 Triglycerides 114 mg/dL 05/29/17 0614 Discharge Instructions General Discharge Information Multiple Neuroleptics: ([x]) Not Applicable OR Document below three failed attempts at monotherapy, or a plan to taper to monotherapy, or augmentation of Clozapine. () Discharge Diet Regular Discharge Activity Normal DC Disposition: Returning home to .[place]. Referrals Ordered Referrals Provider Referral 06/03/17 For Groups: Outpatient Psychiatry [[facility] ] [facility] appt. with Therapist (Lashaun) 06/03/17 5:15pm [address] [place] [address] Prescriptions Stop taking the following medications: Bupropion HCl (Wellbutrin Sr) (Unknown Strength) TABLET.ER Lamotrigine (Lamictal) (Unknown Strength) TABLET Start taking the following new medications: [Nicoderm] 21 Milligram On the skin DAILY Qty = 14 No Refills Gabapentin (Gabapentin) 300 MG CAPSULE 1 Capsule ORAL EVERY SIX HOURS NEEDED as needed for ANXIETY/JITTERY/ TREMOR/INSOMNI Qty = 42 No Refills Lamotrigine (Lamictal) 100 MG TABLET 1 Tablet ORAL AT BEDTIME Qty = 14 No Refills Hydroxyzine Hydrochloride (Atarax) 50 MG TAB 1 Tablet ORAL AT BEDTIME as needed for SLEEP Qty = 14 No Refills Benztropine Mesylate (Benztropine Mesylate) 1 MG TABLET 1 Tablet ORAL TWICE DAILY Qty = 28 No Refills Docusate Sodium (Docusate Sodium) 100 MG CAPSULE 1 Capsule ORAL TWICE DAILY Qty = 28 No Refills Haloperidol (Haloperidol) 5 MG TABLET 1 Tablet ORAL SEE INSTRUCTIONS Qty = 35 No Refills Instructions: take 1 tab in AM and 1.5 tab at bedtime Other Inst/Recommendations See PCP about abnormal labs listed above. Stay clean from drugs&alcohol. Studies Pending at Discharge None. Copies To: Dr. Feng
--- NOTE | 2017-06-02 15:47 | IP INCIDENTAL NOTE PSYCH ---
Incidental Note Notation: Message left for Dr. Feng to call me.
[2017-06-02 16:10] VITALS: BP 126/90
--- NOTE | 2017-06-02 17:40 | SOCIAL WORKER PROG NOTE PSYCH ---
Social Work Progress Note Faxed Referral(s) Referred To: [facility] Transition of Care Documents sent: Health Summary Faxed to: Kath[facility] Fax #: [phone] Faxed by: Neeta Sharp Date faxed: 06/02/17 Time Faxed: [phone]
--- NOTE | 2017-06-03 11:43 | IP INCIDENTAL NOTE PSYCH ---
Incidental Note Notation: Case d/w Dr. Feng.
== END 2017-06-02 17:37 | DRG 753 ==
LOC: ERH 09:27 → CP SOUTH 05-27 13:39 → ERHI 05-27 13:39 → CP SOUTH 05-27 16:58
PROVIDERS: Emergency Medicine; Nurse Practitioner Psychiatric/Mental Health
DX: F31.2 Bipolar disorder, current episode manic severe with psychotic features (principal); F60.3 Borderline personality disorder; F12.90 Cannabis use, unspecified, uncomplicated; Z87.898 Personal history of other specified conditions
CPT/HCPCS: 36415; 80307; 81003; 93005; 93010; 96372; G0463; G0480; J1200; J1630; J1631; J3101; Q2036